=== PATIENT | male | born 1975 | race Caucasian/White ===

== ENCOUNTER → 2017-04-06 | Outpatient (CLI) | payer MEDICARE, OTHER ==
[2017-04-06 13:21] LABS: Blood Urea Nitrogen 13 mg/dL (9-20)
--- NOTE | 2017-04-06 15:05 | CT ---
EXAMINATION TYPE: CT abdomen pelvis w con DATE OF EXAM: 04/06/2017 COMPARISON: NONE HISTORY: Right and Left lower quadrant pain, h/o bilateral hernia repairs CT DLP: 2296.3 mGycm Automated exposure control for dose reduction was used. TECHNIQUE: Helical acquisition of images was performed from the lung bases through the pelvis. CONTRAST: Performed with Oral Contrast and with IV Contrast, patient injected with 100 mL of Omnipaque 300. FINDINGS: LUNG BASES: Bilateral small diaphragmatic hernias are noted as well as copious left pleural fat and l eft basilar subsegmental atelectasis. Nonenlarged epiphrenic lymph node is noted. LIVER/GB: Hepatic parenchyma is diffusely hypoattenuated in comparison to that of the spleen, most co mmonly seen in hepatic steatosis. This finding limits evaluation for hepatic masses. No gross evidenc e of hepatic mass is seen. No intrahepatic biliary ductal dilatation. No cholelithiasis. PANCREAS: No significant abnormality is seen. SPLEEN: Small splenule is seen adjacent to the [place] spleen posterior to the pancreatic tail. ADRENALS: No significant abnormality is seen. KIDNEYS: No hydronephrosis. Kidneys enhance and excrete symmetrically. FREE AIR: No free air is visualized. RETROPERITONEAL ADENOPATHY: None visualized REPRODUCTIVE ORGANS: A single punctate central zone calcification is seen within the nonenlarged pros nava gland. A small left fat filled inguinal hernia is present. No right inguinal hernia is seen. No fluid is seen within the inguinal canals. URINARY BLADDER: No significant abnormality is seen. PELVIC ADENOPATHY: None visualized. OSSEOUS STRUCTURES: Punctate left femoral sclerotic well-circumscribed nonaggressive appearing bone island is seen. Minimal degenerative changes are present at T11-L1. BOWEL: No significant abnormality is seen. IMPRESSION: 1. SMALL RECURRENT FAT FILLED LEFT INGUINAL HERNIA. NO RIGHT INGUINAL HERNIA SEEN. 2. HEPATIC STEATOSIS, APPEARING MILD IN DEGREE. 3. SMALL BILATERAL DIAPHRAGMATIC HERNIAS.
== END | disposition home or self-care (01) ==
LOC: RADCTMAIN 12:37
PROVIDERS: ATTEND Surgery
DX: K40.91 Unilateral inguinal hernia, without obstruction or gangrene, recurrent (principal); K76.0 Fatty (change of) liver, not elsewhere classified; K44.9 Diaphragmatic hernia without obstruction or gangrene; R10.31 Right lower quadrant pain
CPT/HCPCS: 82565; 84520; 83036; 74177; 36415; Q9967